=== PATIENT | female | born 1955 | race Hispanic/Latino ===

== ENCOUNTER 2018-04-20 16:26 | Emergency (ER) | payer MEDICARE, OTHER, SELFPAY ==
[2018-04-20] MEDS ORDERED: traMADol HCl 50 MG TAB ONE (18:24)
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
== END 2018-04-20 18:33 | disposition home or self-care (01) ==
LOC: NAV ERS 16:26
DX: S29.012A Strain of muscle and tendon of back wall of thorax, initial encounter (principal); S90.01XA Contusion of right ankle, initial encounter; S50.01XA Contusion of right elbow, initial encounter; M50.30 Other cervical disc degeneration, unspecified cervical region; M51.34 Other intervertebral disc degeneration, thoracic region; E11.9 Type 2 diabetes mellitus without complications; E78.5 Hyperlipidemia, unspecified; I10 Essential (primary) hypertension; Z79.899 Other long term (current) drug therapy; Z79.4 Long term (current) use of insulin; V43.62XA Car passenger injured in collision with other type car in traffic accident, initial encounter
CPT/HCPCS: 71046; 72125; 72128

== ENCOUNTER 2022-11-05 06:32 | Emergency (ER) | payer OTHER ==
[2022-11-05] MEDS ORDERED: Fentanyl 100 MCG/2 ML VIAL ONE (07:33)
[2022-11-05] MEDS ORDERED: Ibuprofen 200 MG TAB ONE (07:51)
== END 2022-11-05 08:10 | disposition home or self-care (01) ==
LOC: NAV ERS 06:32
DX: S16.1XXA Strain of muscle, fascia and tendon at neck level, initial encounter (principal); E11.9 Type 2 diabetes mellitus without complications; E78.00 Pure hypercholesterolemia, unspecified; I10 Essential (primary) hypertension; Z79.84 Long term (current) use of oral hypoglycemic drugs; Z79.899 Other long term (current) drug therapy; V89.2XXA Person injured in unspecified motor-vehicle accident, traffic, initial encounter
CPT/HCPCS: 72125; 96374; J3010